=== PATIENT | male | born 2000 | race Hispanic/Latino ===

== ENCOUNTER 2020-11-14 23:47 | Emergency (ER) | payer SELFPAY ==
[~2020-11-14] VITALS: Ht 175.3 cm; Wt 83.4 kg
[2020-11-14 23:50] VITALS: BP 155/87
[2020-11-15] MEDS ORDERED: PRED20TA PO (00:19)
== END 2020-11-15 00:35 | disposition home or self-care (01) ==
LOC: EDBD 23:47 → M ED 23:47
DX: G51.0 Bell's palsy (principal)